=== PATIENT | male | born 1990 | race Caucasian/White ===

== ENCOUNTER 2024-07-16 06:20 | Day surgery (SDC) | payer OTHER, SELFPAY ==
[2024-07-16] VITALS (7 sets, daily range): BP systolic 103–131; BP diastolic 73–96; BMI 27.2
[2024-07-16] MEDS: MOBIC 15 MG PO (06:49)
[2024-07-16] MEDS: TYLENOL 1000 MG PO (06:49)
[2024-07-16] MEDS: NORMOSOL-R/PLASMALYTE-A 1000 IV (06:50)
[2024-07-16] MEDS: VANCOCIN 300 ML IV (06:55)
[2024-07-16] MEDS: VANCOCIN 300 MG IV (06:55)
[2024-07-16] MEDS: DILAUDID 0.25 MG IV (09:03)
== END 2024-07-16 10:23 | disposition home or self-care (01) ==
LOC: SDS 06:20
PROVIDERS: ATTENDING PHYSICIAN Specialist
DX: S83.211A Bucket-handle tear of medial meniscus, current injury, right knee, initial encounter (principal); M25.561 Pain in right knee; X50.9XXA Other and unspecified overexertion or strenuous movements or postures, initial encounter; Y93.64 Activity, baseball
CPT/HCPCS: 29882; 87070